=== PATIENT | female | born 1980 | race Caucasian/White ===

== ENCOUNTER 2022-12-30 19:38 | Emergency (ER) | payer OTHER ==
[~2022-12-30] VITALS: Ht 165.1 cm; Wt 59.0 kg
[2022-12-30] MEDS ORDERED: diphenhydrAMINE 25 MG CAP PO ONE ×2 (20:15→20:35)
[2022-12-30] MEDS ORDERED: predniSONE 20 MG TABLET PO ONE (20:15)
[2022-12-30] MEDS ORDERED: predniSONE 20 MG TABLET ONE (20:35)
[2022-12-30] MEDS ORDERED: LORA10TA7 PO (20:53)
[2022-12-30] MEDS ORDERED: PRED20TA PO (20:53)
[2022-12-30] MEDS ORDERED: EPIN0.3P3 IM (20:53)
[2022-12-30 22:02] VITALS: BP 134/79; TEMP 98.2; O2SAT 97
== END 2022-12-30 21:15 | disposition home or self-care (01) ==
LOC: ER 19:41
DX: T78.3XXA Angioneurotic edema, initial encounter (principal); R22.0 Localized swelling, mass and lump, head; F17.210 Nicotine dependence, cigarettes, uncomplicated; Z79.899 Other long term (current) drug therapy
CPT/HCPCS: 99283; Q0163; J7512; A4663